=== PATIENT | male | born 2000 | race African-American/Black ===

== ENCOUNTER 2018-09-14 13:30 | Emergency (ER) | payer OTHER ==
--- NOTE | 2018-09-14 13:51 | ED Physician Documentation ---
Lower Extremity Injury - HISTORIAN Historian: patient - HPI Stated Complaint: Right Ankle Pain Chief Complaint: Lower Extremity Injury Onset: hours (1) Where: home Context: twist Associated Symptoms:: tingling, unable to bear weight Modifying Factors:: pain on movement - ROS CONST: no problems CVS/RESP: none - PAST HX Past History: other (asthma) Immunizations: referred to PCP Allergies/Adverse Reactions: Allergies Allergy/AdvReac Type Severity Reaction Status Date / Time Penicillins Allergy Intermediate Rash Verified 09/14/18 13:48 - SOCIAL HX Smoking History: less than 1 pack/day (1/2 ppd) Alcohol Use: none Drug Use: none - FAMILY HX Family History: no significant history - VITAL SIGNS Vital Signs: Vital Signs Temp Pulse Resp BP Pulse Ox 97.8 F 60 16 113/58 99 09/14/18 13:31 09/14/18 13:31 09/14/18 13:31 09/14/18 13:31 09/14/18 13:31 - REVIEWED ASSESSMENTS Nursing Assessment Reviewed: Yes Vitals Reviewed: Yes ED Results Lab/Radiology - Radiology Radiology Impressions: Examination: Plain film right ankle History: Patient was playing basketball and jumped and then landed on the foot Findings: 3 views of the right ankle demonstrates normal cortical margins. Unfused ossicle inferior to the fibular tip. No fracture or dislocation. Talar dome is intact. Significant lateral soft tissue swelling. No joint effusion. Impression: Significant lateral soft tissue swelling. No displaced fracture lucency. - Orders Orders: ED Orders Category Date Time Status Air Splint 1T Care 09/14/18 14:35 Active RIGHT ANKLE [ANKLE 3 VIEWS OR MORE] [RAD] Stat Exams 09/14/18 Taken Lower Extremities Injury Phy - Physical Exam General Appearance: alert, mild distress Hips: bilateral hip: non-tender, normal inspection, normal range of motion, no evidence of injury Legs: bilateral: non-tender, normal inspection, normal range of motion, no evidence of injury Knees: bilateral: non-tender, normal inspection, normal range of motion, no evidence of injury Ankle: right: limited range of motion, pain, soft tissue tenderness (lateral), swelling (lateral), left: non-tender, normal inspection, normal range of motion, no evidence of injury, N/A: deformity (none), ecchymosis (none) Foot: bilateral foot: non-tender, normal inspection, normal range of motion, no evidence of injury Gait: limited by pain Neuro/Vascular/Tendon: no vascular compromise, motor nml, sensation nml Neck/Back: nml inspection Resp/CVS: chest non-tender, breath sounds nml, heart sounds nml, no resp. distress Discharge Clincal Impression: Right ankle strain Qualifiers: Encounter type: initial encounter Qualified Code(s): S96.911A - Strain of unspecified muscle and tendon at ankle and foot level, right foot, initial encounter Referrals: Mauro Sinha MD [Primary Care Provider] - 2 Days Additional Instructions: Wear air cast splint for the next several days. Keep ankle elevated with some ice when possible for the next 24 hours. Take Ibuprofen up to 800mg 3 times a day as needed for pain. If any other problems develop to return to the clinic or return to the ED. Work excuse given for today. Condition: Stable Disposition: 01 HOME, SELF-CARE Decision to Admit: NO Date of Decison to Admit: 09/14/18 Decision Time: 13:56
[2018-09-14 15:10] VITALS: BP 111/60
--- NOTE | 2018-09-15 04:51 | Diagnostic Imaging Report ---
KARLI WHITESIDE [facility] [id number] [facility].[address] [id number] Report Submission Date: Sep 14, 2018 2:30:12 PM CDT Patient Study Name: JOAQUINA CAMACHO Date: Sep 14, 2018 2:00:32 PM CDT Modality Type: DX Gender: M Description: ANKLE 3 VIEWS OR MORE : 98 Institution: [facility] Physician: KARLI WHITESIDE Examination: Plain film right ankle History: Patient was playing basketball and jumped and then landed on the foot Findings: 3 views of the right ankle demonstrates normal cortical margins. Unfused ossicle inferior to the fibular tip. No fracture or dislocation. Talar dome is intact. Significant lateral soft tissue swelling. No joint effusion. Impression: Significant lateral soft tissue swelling. No displaced fracture lucency. Electronically signed on Sep 14, 2018 2:30:12 PM CDT by: Eduar MORRIS
== END 2018-09-14 15:09 | disposition home or self-care (01) ==
LOC: ED 13:30
DX: S96.911A Strain of unspecified muscle and tendon at ankle and foot level, right foot, initial encounter (principal); X58.XXXA Exposure to other specified factors, initial encounter; Y93.67 Activity, basketball; Y92.009 Unspecified place in unspecified non-institutional (private) residence as the place of occurrence of the external cause
CPT/HCPCS: 29515; 73610; 99282; 99283